=== PATIENT | male | born 1970 | race Caucasian/White ===

== ENCOUNTER 2017-01-26 10:03 | Day surgery (SDC) | payer OTHER ==
[~2017-01-26] VITALS: Ht 172.7 cm; Wt 90.7 kg
[2017-01-26 11:17] VITALS: Ht 172.7 cm; Wt 90.7 kg
[2017-01-26] MEDS ORDERED: BENA10TA48 PO (11:26)
[2017-01-26] MEDS ORDERED: ALLO100T PO (11:26)
[2017-01-26] MEDS ORDERED: LIDOCAINE 2% (SDV) 5 ML INJ ONE (11:54)
[2017-01-26] MEDS ORDERED: GLYCOPYRROLATE 0.4 MG INJ ONE (11:54)
[2017-01-26] MEDS ORDERED: PROPOFOL 40 ML ONE (11:54)
[2017-01-26 11:58] VITALS: BP 170/87; PULSE 42; RESP 12
--- NOTE | 2017-01-26 12:18 | OPPN ---
Date/Time of Note Date/Time of Note DATE: 01/26/17 TIME: 12:16 Operative Report Preoperative Diagnosis Abdominal pain Weight loss Postoperative Diagnosis Gastritis with erosions Operation/Procedure Performed Esophagogastroduodenoscopy and biopsy Surgeon see signature line assistant auto center manager None Anesthesia: MAC Estimated blood loss: none Transfusion Required none Specimen Gastric mucosal biopsy Grafts/Implants none Complications none HANG JEAN MD Jan 26, 2017 12:17
[2017-01-26 12:50] VITALS: BP 139/96; RESP 18
--- NOTE | 2017-01-26 15:08 | GILP ---
DATE OF PROCEDURE: 01/26/2017 PROCEDURE PERFORMED: Esophagogastroduodenoscopy and biopsy. PREOPERATIVE DIAGNOSIS: 1. Abdominal pain. 2. Loss of appetite. 3. Family history gastric cancer. POSTOPERATIVE DIAGNOSES: 1. Gastritis with erosions. 2. Gastric mucosal biopsies were taken for Helicobacter pylori test. INDICATION: Mr. Jacky Ríos is a 46-year-old male patient who had upper abdominal pain and loss of appetite. The patient had a family history of gastric cancer. The patient was scheduled for endoscopy examination for further evaluation. The procedure and possible complications were well explained to the patient. He understood and consented to the procedure. DESCRIPTION OF PROCEDURE: Under the influence of anesthesia, the gastroscope was carefully introduced into the esophagus. Under direct vision, it was advanced to the stomach, into the pylorus, into the duodenal bulb, and descending duodenum. FINDINGS: Esophagus, mucosa was normal. Stomach, the patient had gastritis with erosions. Gastric mucosal biopsies were taken for Helicobacter pylori test. Duodenum was normal. He tolerated the procedure very well. There was no complication from the procedure. At the end of procedure, he was awake with stable vital signs. He was discharged home in the care of his family. IMPRESSION: Please see postoperative diagnoses. PLAN: 1. Omeprazole 40 mg p.o. q.a.m. 2. Await Helicobacter pylori test report. Dictated By: MD TANISHA Lyons/anthony/[email or web address] /Document#: [id number]
== END 2017-01-26 14:27 | disposition home or self-care (01) ==
LOC: GIL 10:03
PROVIDERS: ATTEND Internal Medicine Gastroenterology
DX: K29.60 Other gastritis without bleeding (principal); B96.81 Helicobacter pylori [H. pylori] as the cause of diseases classified elsewhere; I10 Essential (primary) hypertension; E78.5 Hyperlipidemia, unspecified; E66.9 Obesity, unspecified; Z68.30 Body mass index [BMI] 30.0-30.9, adult
CPT/HCPCS: 87081